=== PATIENT | male | born 1940 | race Caucasian/White ===

== ENCOUNTER → 2017-02-05 | Outpatient (CLI) | payer MEDICARE, OTHER ==
[~2017-02-05] MED LIST: AMBIEN 5MG TABLE5 MG PO; CIPRO 500MG TA500 MG PO; COLACE 100100 MG/CAP PO; ELIQUIS 5MG PO; GLUCOPHAGE XR500 M1 PO; HCTZ 25MG TAB25 MG PO; MIRALAX PA17 GM/Dose PO; MORPHINE 1515 MG/TAB PO; PERCOCET 325 MG1 TA2 PO; PROTONIX 40MG T40 MG PO; REGLAN 10MG10 MG/TAB PO; ZOCOR 20MG20 MG PO
== END ==
LOC: COL.RAD 08:29
PROVIDERS: Urology
DX: Z01.812 Encounter for preprocedural laboratory examination (principal); D37.8 Neoplasm of uncertain behavior of other specified digestive organs; D37.6 Neoplasm of uncertain behavior of liver, gallbladder and bile ducts; C61 Malignant neoplasm of prostate; R97.21 Rising PSA following treatment for malignant neoplasm of prostate
CPT/HCPCS: A9503; Q9967

== ENCOUNTER 2017-04-14 11:06 | Outpatient (RCR) | payer MEDICARE, OTHER ==
[2017-04-14] VITALS (10 sets, daily range): BP systolic 100–121; BP diastolic 60–83; PULSE 67–82; TEMP 97.8–98.5
[~2017-04-14] VITALS: Ht 180.3 cm; Wt 65.0 kg
[~2017-04-14 11:06] MED LIST changes: -AMBIEN 5MG TABLE5 MG PO; -ELIQUIS 5MG PO; -GLUCOPHAGE XR500 M1 PO; -MIRALAX PA17 GM/Dose PO; -MORPHINE 1515 MG/TAB PO; -PROTONIX 40MG T40 MG PO; -REGLAN 10MG10 MG/TAB PO
[2017-04-14] MEDS ORDERED: PROTONIX 40MG T40 MG PO (12:32)
[2017-04-14] MEDS ORDERED: REGLAN 10MG10 MG/TAB PO (12:33)
[2017-04-14] MEDS ORDERED: MORPHINE 1515 MG/TAB PO (12:35)
[2017-04-14] MEDS ORDERED: MIRALAX PA17 GM/Dose PO (12:37)
== END 2017-04-14 17:23 | disposition home or self-care (01) ==
LOC: EUO 11:06
DX: C25.9 Malignant neoplasm of pancreas, unspecified (principal)
CPT/HCPCS: J7050; P9016

== ENCOUNTER → 2017-06-17 | Outpatient (CLI) | payer MEDICARE, OTHER ==
[~2017-06-17] MED LIST changes: +AMBIEN 5MG TABLE5 MG PO; +ELIQUIS 5MG PO; +GLUCOPHAGE XR500 M1 PO; +MIRALAX PA17 GM/Dose PO; +MORPHINE 1515 MG/TAB PO; +PROTONIX 40MG T40 MG PO; +REGLAN 10MG10 MG/TAB PO
== END ==
LOC: COL.VAS 12:58
DX: I82.411 Acute embolism and thrombosis of right femoral vein (principal); Z85.07 Personal history of malignant neoplasm of pancreas

== ENCOUNTER 2017-06-22 10:49 | Outpatient (RCR) | payer MEDICARE, OTHER ==
[2017-06-22] VITALS (9 sets, daily range): BP systolic 116–134; BP diastolic 67–87; PULSE 60–69; TEMP 97.2–98.5
[~2017-06-22] VITALS: Ht 180.3 cm; Wt 66.2 kg
[~2017-06-22 10:49] MED LIST changes: -AMBIEN 5MG TABLE5 MG PO; -ELIQUIS 5MG PO; -GLUCOPHAGE XR500 M1 PO
[2017-06-22] MEDS ORDERED: GLUCOPHAGE XR500 M1 PO (11:49)
[2017-06-22] MEDS ORDERED: AMBIEN 5MG TABLE5 MG PO (11:50)
[2017-06-22] MEDS ORDERED: ELIQUIS 5MG PO (11:51)
== END 2017-06-22 16:58 | disposition home or self-care (01) ==
LOC: EUO 10:49
DX: C25.9 Malignant neoplasm of pancreas, unspecified (principal); Z79.899 Other long term (current) drug therapy
CPT/HCPCS: J7050; P9016

== ENCOUNTER → 2017-07-15 | Outpatient (CLI) | payer MEDICARE, OTHER ==
[~2017-07-15] MED LIST changes: +AMBIEN 5MG TABLE5 MG PO; +ELIQUIS 5MG PO; +GLUCOPHAGE XR500 M1 PO
== END ==
LOC: COL.VAS 08:41
DX: I82.411 Acute embolism and thrombosis of right femoral vein (principal)

== ENCOUNTER 2017-07-30 10:26 | Day surgery (SDC) | payer MEDICARE, OTHER ==
[2017-07-30] VITALS (11 sets, daily range): BP systolic 135–187; BP diastolic 72–96; PULSE 52–73; TEMP 97–98.1
[~2017-07-30] VITALS: Ht 180.3 cm; Wt 69.9 kg
[~2017-07-30 10:26] MED LIST changes: +ACTOS30 MG PO; +CEFTIN500 MG PO; +COMPAZINE 110 MG/TAB PO; +PRIL40 PO; +SYNTHROID0.088 MG/T PO
== END 2017-07-30 16:38 | disposition home or self-care (01) ==
LOC: SDCO 10:26
DX: C25.9 Malignant neoplasm of pancreas, unspecified (principal); K83.8 Other specified diseases of biliary tract; K83.1 Obstruction of bile duct; I10 Essential (primary) hypertension; E11.9 Type 2 diabetes mellitus without complications; R17 Unspecified jaundice; Z79.84 Long term (current) use of oral hypoglycemic drugs; Z79.01 Long term (current) use of anticoagulants
CPT/HCPCS: C1769; C2625; J0360; J2704; Q9967

== ENCOUNTER 2017-09-22 08:59 | Outpatient (RCR) | payer MEDICARE, OTHER ==
[2017-09-22] VITALS (10 sets, daily range): BP systolic 97–119; BP diastolic 56–74; PULSE 62–73; TEMP 97.6–98
== END 2017-09-22 16:44 | disposition home or self-care (01) ==
LOC: EUO 08:59
DX: C25.0 Malignant neoplasm of head of pancreas (principal); Z79.899 Other long term (current) drug therapy
CPT/HCPCS: J7050; P9016

== ENCOUNTER 2018-05-19 13:00 | Outpatient (RCR) | payer MEDICARE, OTHER ==
[2018-02-21 08:45] VITALS: BP 141/77; PULSE 86; TEMP 97.8
[2018-02-22 14:36] VITALS: BP 115/70; PULSE 88; TEMP 98.1
[2018-02-23 14:43] VITALS: BP 111/83; PULSE 123; TEMP 97.9
[2018-02-28 10:49] VITALS: BP 116/85; PULSE 109; TEMP 97.5
[2018-02-28 10:51] LABS: MEAN CELL VOLUME 99 fl (80.0-100.0); MEAN CORPUSCULAR HGB CONC 33 g/dl (33.0-37.0); MEAN PLATELET VOLUME 10.2 fl (7.4-10.4); PLATELET COUNT 151 K/mm3 (130-400); RED BLOOD COUNT 2.66 M/mm3 (4.20-5.60); REDCELL DISTRIBUTION WIDTH-CV 14.9 % (11.5-14.5)
[2018-02-28 10:53] LABS: HEMATOCRIT 26.4 % (42.0-52.0); HEMOGLOBIN 8.8 g/dl (13.5-18.0); MEAN CORPUSCULAR HEMOGLOBIN 33 pg (27.0-31.0)
[2018-02-28 11:01] LABS: ALBUMIN 3.5 gm/dL (3.5-5.0); BILIRUBIN,TOTAL 0.5 mg/dL (0.0-1.0); CALCIUM 8.7 mg/dL (8.4-10.2); POTASSIUM 4.6 mmol/L (3.4-5.0); TOTAL PROTEIN 7.3 gm/dL (6.4-8.2)
[2018-02-28 12:16] LABS: BAND 3 % (0-10); BASOPHIL 2 % (0-2); EOSINOPHIL 1 % (0-4); LYMPHOCYTE 10 % (20.0-51.0); NEUTROPHILS 82 % (42.0-75.2); PLATELET ESTIMATE NORMAL (NORMAL)
[2018-02-28 12:18] LABS: ANISOCYTOSIS 1+
[2018-03-07 12:38] VITALS: BP 113/72; PULSE 115; TEMP 97.3
[2018-03-16 10:15] VITALS: BP 101/59; PULSE 99; TEMP 97.3
[2018-03-16 10:28] LABS: MEAN CELL VOLUME 99 fl (80.0-100.0); MEAN CORPUSCULAR HGB CONC 33 g/dl (33.0-37.0); MEAN PLATELET VOLUME 9.9 fl (7.4-10.4); PLATELET COUNT 163 K/mm3 (130-400); RED BLOOD COUNT 2.76 M/mm3 (4.20-5.60); REDCELL DISTRIBUTION WIDTH-CV 15.9 % (11.5-14.5)
[2018-03-16 10:32] LABS: HEMATOCRIT 27.3 % (42.0-52.0); HEMOGLOBIN 9.1 g/dl (13.5-18.0); MEAN CORPUSCULAR HEMOGLOBIN 33 pg (27.0-31.0)
[2018-03-16 10:40] LABS: ALANINE AMINOTRANSFERASE 33 U/L (21-72); ALBUMIN 3.5 gm/dL (3.5-5.0); ALKALINE PHOSPHATASE 122 U/L (50-136); ANION GAP 12 mmol/L (7-16); AST,SGOT 31 U/L (15-37); BILIRUBIN,TOTAL 0.7 mg/dL (0.0-1.0); BLOOD UREA NITROGEN 22 mg/dL (9-20); CALCIUM 9.7 mg/dL (8.4-10.2); CARBON DIOXIDE 25 mmol/L (22-30); CHLORIDE 95 mmol/L (98-107); CREATININE, serum 1.12 mg/dL (0.66-1.25); GLUCOSE 227 mg/dL (74-106); POTASSIUM 4.5 mmol/L (3.4-5.0); SODIUM 132 mmol/L (137-145)
[2018-03-16 11:38] LABS: BAND 2 % (0-10); EOSINOPHIL 1 % (0-4); LYMPHOCYTE 13 % (20.0-51.0); NEUTROPHILS 84 % (42.0-75.2)
[2018-03-16 11:39] LABS: ANISOCYTOSIS 1+; PLATELET ESTIMATE NORMAL (NORMAL)
[2018-03-23 13:38] VITALS: BP 95/68; PULSE 107; TEMP 98.2
[2018-03-30 12:09] VITALS: BP 106/66; PULSE 112; TEMP 98.2
[2018-03-30 12:22] LABS: ALBUMIN 3.3 gm/dL (3.5-5.0); BILIRUBIN,TOTAL 0.9 mg/dL (0.0-1.0); CALCIUM 8.9 mg/dL (8.4-10.2); CREATININE, serum 1.13 mg/dL (0.66-1.25); MEAN CELL VOLUME 100 fl (80.0-100.0); MEAN CORPUSCULAR HGB CONC 33 g/dl (33.0-37.0); PLATELET COUNT 193 K/mm3 (130-400); POTASSIUM 3.9 mmol/L (3.4-5.0); RED BLOOD COUNT 2.38 M/mm3 (4.20-5.60); TOTAL PROTEIN 6.8 gm/dL (6.4-8.2)
[2018-03-30 12:23] LABS: HEMATOCRIT 23.9 % (42.0-52.0); HEMOGLOBIN 7.9 g/dl (13.5-18.0); MEAN CORPUSCULAR HEMOGLOBIN 33 pg (27.0-31.0)
[2018-03-30 12:31] LABS: BAND 10 % (0-10); EOSINOPHIL 2 % (0-4); LYMPHOCYTE 18 % (20.0-51.0); METAMYELOCYTE 1 % (0-0); NEUTROPHILS 67 % (42.0-75.2); PLATELET ESTIMATE NORMAL (NORMAL)
[2018-04-01] VITALS (10 sets, daily range): BP systolic 93–117; BP diastolic 69–80; PULSE 91–112; TEMP 96.7–98.1
[2018-04-06 15:18] VITALS: BP 117/80; PULSE 107; TEMP 98.8
[2018-04-11 12:10] VITALS: BP 101/64; PULSE 102; TEMP 97.3
[2018-04-11 12:43] LABS: MEAN CELL VOLUME 97 fl (80.0-100.0); MEAN CORPUSCULAR HGB CONC 33 g/dl (33.0-37.0); MEAN PLATELET VOLUME 9.8 fl (7.4-10.4); PLATELET COUNT 156 K/mm3 (130-400); RED BLOOD COUNT 2.93 M/mm3 (4.20-5.60); REDCELL DISTRIBUTION WIDTH-CV 17.7 % (11.5-14.5)
[2018-04-11 12:46] LABS: ALBUMIN 3.3 gm/dL (3.5-5.0); BILIRUBIN,TOTAL 1.1 mg/dL (0.0-1.0); CALCIUM 8.8 mg/dL (8.4-10.2); CREATININE, serum 0.97 mg/dL (0.66-1.25); POTASSIUM 3.8 mmol/L (3.4-5.0); TOTAL PROTEIN 6.9 gm/dL (6.4-8.2)
[2018-04-11 12:55] LABS: HEMATOCRIT 28.4 % (42.0-52.0); HEMOGLOBIN 9.4 g/dl (13.5-18.0); MEAN CORPUSCULAR HEMOGLOBIN 32 pg (27.0-31.0)
[2018-04-11 13:04] LABS: BAND 1 % (0-10); BASOPHIL 1 % (0-2); EOSINOPHIL 8 % (0-4); LYMPHOCYTE 26 % (20.0-51.0); NEUTROPHILS 63 % (42.0-75.2)
[2018-04-11 13:05] LABS: PLATELET ESTIMATE NORMAL (NORMAL)
[2018-04-11 13:06] LABS: ANISOCYTOSIS 1+
[2018-04-18 11:39] VITALS: BP 104/66; PULSE 107; TEMP 97.2
[2018-04-25 11:47] VITALS: BP 106/66; PULSE 97; TEMP 98.6
[2018-04-25 12:13] LABS: ALBUMIN 3.1 gm/dL (3.5-5.0); BILIRUBIN,TOTAL 1.1 mg/dL (0.0-1.0); CALCIUM 8.3 mg/dL (8.4-10.2); CREATININE, serum 1.08 mg/dL (0.66-1.25); MEAN CELL VOLUME 105 fl (80.0-100.0); MEAN CORPUSCULAR HGB CONC 33 g/dl (33.0-37.0); PLATELET COUNT 143 K/mm3 (130-400); POTASSIUM 3.5 mmol/L (3.4-5.0); RED BLOOD COUNT 2.11 M/mm3 (4.20-5.60); REDCELL DISTRIBUTION WIDTH-CV 17.5 % (11.5-14.5); TOTAL PROTEIN 6.2 gm/dL (6.4-8.2)
[2018-04-25 12:14] LABS: HEMATOCRIT 22.1 % (42.0-52.0); HEMOGLOBIN 7.2 g/dl (13.5-18.0); MEAN CORPUSCULAR HEMOGLOBIN 34 pg (27.0-31.0)
[2018-04-25 12:33] LABS: BAND 4 % (0-10); LYMPHOCYTE 14 % (20.0-51.0); NEUTROPHILS 82 % (42.0-75.2); NUCLEATED RED BLOOD CELL 1 (0-6); PLATELET ESTIMATE NORMAL (NORMAL)
[2018-04-26] VITALS (7 sets, daily range): BP systolic 97–116; BP diastolic 60–79; PULSE 77–90; TEMP 97.3–97.6
[2018-05-03 09:30] VITALS: BP 120/82; PULSE 82; TEMP 97
[2018-05-11 10:30] VITALS: BP 102/67; PULSE 98; TEMP 97.5
[2018-05-11 10:57] LABS: MEAN CELL VOLUME 103 fl (80.0-100.0); MEAN CORPUSCULAR HGB CONC 33 g/dl (33.0-37.0); MEAN PLATELET VOLUME 9.3 fl (7.4-10.4); PLATELET COUNT 179 K/mm3 (130-400); RED BLOOD COUNT 2.63 M/mm3 (4.20-5.60)
[2018-05-11 10:58] LABS: HEMATOCRIT 27.1 % (42.0-52.0); MEAN CORPUSCULAR HEMOGLOBIN 34 pg (27.0-31.0)
[2018-05-11 11:10] LABS: ALBUMIN 3.3 gm/dL (3.5-5.0); BILIRUBIN,TOTAL 0.7 mg/dL (0.0-1.0); CALCIUM 8.5 mg/dL (8.4-10.2); CREATININE, serum 1.16 mg/dL (0.66-1.25); POTASSIUM 3.8 mmol/L (3.4-5.0); TOTAL PROTEIN 6.4 gm/dL (6.4-8.2)
[2018-05-11 12:37] LABS: BAND 3 % (0-10); EOSINOPHIL 2 % (0-4); LYMPHOCYTE 29 % (20.0-51.0); NEUTROPHILS 64 % (42.0-75.2); PLATELET ESTIMATE NORMAL (NORMAL)
[~2018-05-19] VITALS: Ht 180.3 cm; Wt 65.4 kg
[~2018-05-19 13:00] MED LIST changes: +NORCO 325 MG-51 TAB PO; +REMERON 15M15 MG/TA1 PO; +TOVIAZ8 MG PO
[2018-05-19 13:30] VITALS: BP 103/67; PULSE 94; TEMP 97.4
[2018-05-24] MEDS ORDERED: DETROL LA 2 MG2 MG PO (10:21)
[2018-06-08] MEDS ORDERED: IMODIUM A-D2 MG PO (11:34)
[2018-06-08] MEDS ORDERED: ACTOS30 MG PO (11:35)
[2018-06-08] MEDS ORDERED: AZO-STANDARD95 MG PO (11:36)
== END 2018-05-22 | disposition still patient (30) ==
LOC: EUO
PROVIDERS: Internal Medicine
DX: Z45.2 Encounter for adjustment and management of vascular access device (principal); C25.0 Malignant neoplasm of head of pancreas; C78.7 Secondary malignant neoplasm of liver and intrahepatic bile duct; E11.9 Type 2 diabetes mellitus without complications
CPT/HCPCS: C1751; J1644; J7050; P9016

== ENCOUNTER → 2018-06-21 | Outpatient (CLI) | payer MEDICARE, OTHER ==
[~2018-06-21] MED LIST changes: +AZO-STANDARD95 MG PO; +DETROL LA 2 MG2 MG PO; +IMODIUM A-D2 MG PO
== END ==
LOC: COL.RAD 10:34
DX: C25.0 Malignant neoplasm of head of pancreas (principal); M43.8X4 Other specified deforming dorsopathies, thoracic region; N32.89 Other specified disorders of bladder; K76.89 Other specified diseases of liver; E11.9 Type 2 diabetes mellitus without complications; Z95.828 Presence of other vascular implants and grafts
CPT/HCPCS: Q9967

== ENCOUNTER 2018-07-05 11:30 | Outpatient (RCR) | payer MEDICARE, OTHER ==
[2018-05-24 10:37] VITALS: BP 120/74; PULSE 103; TEMP 97.8
[2018-05-24 10:47] LABS: MEAN CELL VOLUME 105 fl (80.0-100.0); MEAN CORPUSCULAR HGB CONC 34 g/dl (33.0-37.0); MEAN PLATELET VOLUME 9.4 fl (7.4-10.4); PLATELET COUNT 194 K/mm3 (130-400); RED BLOOD COUNT 2.45 M/mm3 (4.20-5.60); REDCELL DISTRIBUTION WIDTH-CV 15.1 % (11.5-14.5)
[2018-05-24 10:48] LABS: HEMATOCRIT 25.6 % (42.0-52.0); HEMOGLOBIN 8.6 g/dl (13.5-18.0); MEAN CORPUSCULAR HEMOGLOBIN 35 pg (27.0-31.0)
[2018-05-24 11:01] LABS: ALBUMIN 3.5 gm/dL (3.5-5.0); BILIRUBIN,TOTAL 0.7 mg/dL (0.0-1.0); CREATININE, serum 1.04 mg/dL (0.66-1.25); POTASSIUM 4.1 mmol/L (3.4-5.0); TOTAL PROTEIN 6.6 gm/dL (6.4-8.2)
[2018-05-24 11:30] LABS: BAND 10 % (0-10); EOSINOPHIL 2 % (0-4); LYMPHOCYTE 15 % (20.0-51.0); NEUTROPHILS 65 % (42.0-75.2)
[2018-05-24 11:35] LABS: PLATELET ESTIMATE NORMAL (NORMAL)
[2018-05-24 11:36] LABS: TEAR DROP CELLS 1+
[2018-05-31 11:23] VITALS: BP 98/66; PULSE 112; TEMP 97
[2018-06-08 11:35] LABS: MEAN CELL VOLUME 108 fl (80.0-100.0); MEAN CORPUSCULAR HGB CONC 33 g/dl (33.0-37.0); MEAN PLATELET VOLUME 9.2 fl (7.4-10.4); PLATELET COUNT 194 K/mm3 (130-400); RED BLOOD COUNT 2.21 M/mm3 (4.20-5.60); REDCELL DISTRIBUTION WIDTH-CV 15.5 % (11.5-14.5)
[2018-06-08 11:36] VITALS: BP 114/74; PULSE 99; TEMP 97.4
[2018-06-08 11:47] LABS: HEMATOCRIT 23.9 % (42.0-52.0); HEMOGLOBIN 7.8 g/dl (13.5-18.0); MEAN CORPUSCULAR HEMOGLOBIN 35 pg (27.0-31.0)
[2018-06-08 11:53] LABS: ALBUMIN 3.4 gm/dL (3.5-5.0); BILIRUBIN,TOTAL 0.6 mg/dL (0.0-1.0); CALCIUM 8.7 mg/dL (8.4-10.2); CREATININE, serum 0.96 mg/dL (0.66-1.25); TOTAL PROTEIN 6.7 gm/dL (6.4-8.2)
[2018-06-08 12:43] LABS: ANISOCYTOSIS 2+; LYMPHOCYTE 19 % (20.0-51.0); NEUTROPHILS 80 % (42.0-75.2); PLATELET ESTIMATE NORMAL (NORMAL)
[2018-06-09] VITALS (9 sets, daily range): BP systolic 98–118; BP diastolic 67–78; PULSE 70–92; TEMP 97.3–98.9
[2018-06-14 12:57] VITALS: BP 99/71; PULSE 85; TEMP 97.3
[2018-06-21 11:29] LABS: HEMOGLOBIN 10.5 g/dl (13.5-18.0); MEAN CELL VOLUME 103 fl (80.0-100.0); MEAN CORPUSCULAR HEMOGLOBIN 34 pg (27.0-31.0); MEAN CORPUSCULAR HGB CONC 33 g/dl (33.0-37.0); MEAN PLATELET VOLUME 8.9 fl (7.4-10.4); PLATELET COUNT 143 K/mm3 (130-400); RED BLOOD COUNT 3.07 M/mm3 (4.20-5.60); REDCELL DISTRIBUTION WIDTH-CV 17.8 % (11.5-14.5)
[2018-06-21 11:31] VITALS: BP 102/68; PULSE 76; TEMP 96.9
[2018-06-21 11:40] LABS: ALBUMIN 3.2 gm/dL (3.5-5.0); BILIRUBIN,TOTAL 0.7 mg/dL (0.0-1.0); CALCIUM 8.5 mg/dL (8.4-10.2); CREATININE, serum 0.97 mg/dL (0.66-1.25); POTASSIUM 3.9 mmol/L (3.4-5.0); TOTAL PROTEIN 6.2 gm/dL (6.4-8.2)
[2018-06-21 11:42] LABS: HEMATOCRIT 31.7 % (42.0-52.0)
[2018-06-21 12:33] LABS: ANISOCYTOSIS 1+; BAND 3 % (0-10); EOSINOPHIL 6 % (0-4); LYMPHOCYTE 35 % (20.0-51.0); NEUTROPHILS 51 % (42.0-75.2); PLATELET ESTIMATE DECREASED (NORMAL)
[2018-06-28 11:46] VITALS: BP 94/63; PULSE 90; TEMP 97.8
[~2018-07-05] VITALS: Ht 180.3 cm; Wt 65.4 kg
[2018-07-05 11:48] VITALS: BP 109/66; PULSE 92; TEMP 97.5
[2018-07-05 11:55] LABS: MEAN CELL VOLUME 106 fl (80.0-100.0); MEAN CORPUSCULAR HEMOGLOBIN 34 pg (27.0-31.0); MEAN CORPUSCULAR HGB CONC 32 g/dl (33.0-37.0); MEAN PLATELET VOLUME 9.6 fl (7.4-10.4); PLATELET COUNT 172 K/mm3 (130-400); RED BLOOD COUNT 2.93 M/mm3 (4.20-5.60); REDCELL DISTRIBUTION WIDTH-CV 17.5 % (11.5-14.5)
[2018-07-05 11:57] LABS: HEMATOCRIT 30.9 % (42.0-52.0)
[2018-07-05 12:12] LABS: ALBUMIN 3.5 gm/dL (3.5-5.0); BAND 5 % (0-10); BILIRUBIN,TOTAL 0.8 mg/dL (0.0-1.0); CALCIUM 8.8 mg/dL (8.4-10.2); CREATININE, serum 1.07 mg/dL (0.66-1.25); EOSINOPHIL 3 % (0-4); LYMPHOCYTE 31 % (20.0-51.0); METAMYELOCYTE 2 % (0-0); MYELOCYTE 1 % (0-0); NEUTROPHILS 57 % (42.0-75.2); PLATELET ESTIMATE NORMAL (NORMAL); POLYCHROMASIA 1+; TOTAL PROTEIN 6.5 gm/dL (6.4-8.2)
== END 2018-07-05 11:52 | disposition home or self-care (01) ==
LOC: EUO 11:30
PROVIDERS: Internal Medicine
DX: C25.9 Malignant neoplasm of pancreas, unspecified (principal); D64.9 Anemia, unspecified; C78.7 Secondary malignant neoplasm of liver and intrahepatic bile duct; E03.9 Hypothyroidism, unspecified; Z45.2 Encounter for adjustment and management of vascular access device; Z95.9 Presence of cardiac and vascular implant and graft, unspecified
CPT/HCPCS: J7050; P9016

== ENCOUNTER 2018-07-21 10:10 | Outpatient (RCR) | payer MEDICARE, OTHER ==
[~2018-07-21] VITALS: Ht 180.3 cm; Wt 64.3 kg
[2018-07-21] VITALS (9 sets, daily range): BP systolic 103–139; BP diastolic 67–83; PULSE 79–110; TEMP 97.5–98.1
[2018-07-21] MEDS ORDERED: TYLENOL 500MG500 MG PO (11:29)
== END 2018-07-21 15:33 | disposition home or self-care (01) ==
LOC: EUO 10:10
DX: C25.0 Malignant neoplasm of head of pancreas (principal); D64.81 Anemia due to antineoplastic chemotherapy; C78.7 Secondary malignant neoplasm of liver and intrahepatic bile duct; Z92.21 Personal history of antineoplastic chemotherapy
CPT/HCPCS: J7050; P9016

== ENCOUNTER → 2018-08-16 | Outpatient (CLI) | payer MEDICARE, OTHER ==
[~2018-08-16] MED LIST changes: +TYLENOL 500MG500 MG PO
== END ==
LOC: COL.RAD 09:56
DX: C25.0 Malignant neoplasm of head of pancreas (principal); J98.4 Other disorders of lung; Z95.9 Presence of cardiac and vascular implant and graft, unspecified; Z96.89 Presence of other specified functional implants

== ENCOUNTER → 2018-10-03 | Outpatient (REF) | LOC: ZLAB.WCH 09:25 | DX: Z01.89 Encounter for other specified special examinations (principal) ==

== ENCOUNTER → 2018-10-21 | Outpatient (CLI) | payer MEDICARE, OTHER | LOC: COL.RAD 14:34 | DX: C25.0 Malignant neoplasm of head of pancreas (principal); C78.7 Secondary malignant neoplasm of liver and intrahepatic bile duct; S22.070A Wedge compression fracture of T9-T10 vertebra, initial encounter for closed fracture; N32.89 Other specified disorders of bladder; K62.89 Other specified diseases of anus and rectum; Z96.0 Presence of urogenital implants | CPT/HCPCS: Q9967 ==